=== PATIENT | male | born 1940 | race Caucasian/White ===

== ENCOUNTER 2017-02-03 06:07 | Inpatient (IN) | payer BC ==
[2017-01-23 12:46] LABS: BASOPHILS 0.4 %; BASOPHILS ABSOLUTE 0.02 10/3/uL (0.0-0.16); EOSINOPHILS 5.7 %; EOSINOPHILS ABSOLUTE 0.26 10/3/uL (0.0-0.53); HEMATOCRIT 35.1 % (40.0-51.0); HEMOGLOBIN 11.9 g/dL (13.6-17.8); LYMPHOCYTES 28.7 %; LYMPHOCYTES ABSOLUTE 1.32 10/3/uL (0.67-4.30); MANUAL DIFF NO %; MEAN CORPUS HGB CONC 33.9 g/dL (32.0-36.0); MEAN CORPUSCULAR HEMOGLOB 31.7 pg (26.0-34.0); MEAN CORPUSCULAR VOLUME 93.6 fL (80-100); MEAN PLATELET VOLUME 12.3 fL (9.2-13.0); MONOCYTES 7.6 %; MONOCYTES ABSOLUTE 0.35 10/3/uL (0.21-1.20); NEUTROPHILS 57.6 %; NEUTROPHILS ABSOLUTE 2.65 10/3/uL (2.02-8.40); PLATELET COUNT 114 10/3/uL (150-400); RBC DISTRIBUTION WIDTH 14.5 % (12.0-16.0); RED CELL COUNT 3.75 10/6/uL (4.7-6.1); WHITE BLOOD CELLS 4.6 10/3/uL (4.5-10.5)
[2017-01-23 12:52] LABS: INTERNATIONAL NORMAL RATI 1.1 UNITS (-); PROTIME (NOT ORD) 14.3 SEC (12.0-14.5)
[2017-01-23 12:57] LABS: ASCORBIC ACID (UR NOT ORDER) NEG (NEG); BILIRUBIN, URINE NEGATIVE (NEG); KETONE, URINE NEGATIVE (NEG); LEUKOCYTE ESTERASE(NOT OR NEG (NEG); WBC (NOT ORDERED) (RFLEX) 0 (0-5)
[2017-01-23 13:01] LABS: A/G RATIO 1.5 (0.7-1.9); ALBUMIN 3.7 G/DL (3.5-5.0); ALKALINE PHOSPHATASE 119 U/L (45-117); BUN (BLOOD UREA NITROGEN) 19 MG/DL (6-23); CALCIUM, SERUM 8.8 MG/DL (8.5-10.4); CHLORIDE, SERUM 106 MMOL/L (96-112); CO2 (CARBON DIOXIDE) 32 MMOL/L (24-34); CREATININE 0.82 MG/DL (0.70-1.30); GFR AFRICAN AMERICAN 100 ML/MIN (>=60); GFR NON AFRICAN AMERICAN 87 ML/MIN (>=60); GLOBULIN 2.5 G/DL (2.5-4.1); GLUCOSE, SERUM 98 MG/DL (60-99); POTASSIUM, SERUM 4.5 MMOL/L (3.5-5.3); SGOT(AST) 15 U/L (5-40); SGPT(ALT) 14 U/L (5-65); SODIUM, SERUM 144 MMOL/L (135-148); TOTAL BILIRUBIN 0.2 MG/DL (0-1.2); TOTAL PROTEIN 6.2 G/DL (6.0-8.5)
[2017-01-23 13:07] LABS: B NATRIURETIC PEPTIDE (BNP) 225.5 PG/ML (< 100.0)
[2017-01-23 21:53] LABS: GLYCOHEMOGLOBIN (HbA1c) 5.4 % (4.7-6.1)
--- NOTE | ~2017-02-03 | OP ---
Record Of Operation [facility] [address] [facility] [place]. [address] NAME: JAMES FERNANDEZ : 42 STATUS : ADM IN [facility]#: [id number] AGE: 76 ADM/REG DATE : 02/03/17 MR#: [id number] REPORT SERV DATE: 02/04/17 DICTATED BY: GREG SORIA DATE: 02/03/17 REPORT STATUS : Draft TRANSCRIBED BY: MODL DATE: 02/03/17 DATE OF PROCEDURE: 02/03/2017 ATTENDING PHYSICIAN: Greg Soria MD SURGEONS: 1. Greg Soria MD. 2. James Sanders M.D. 3. Bar Noble M.D. 4. Justino Santamaria M.D. GRAINER MACHINE: Jayesh Roa M.D., Ph.D, F.A.C.C. PREOPERATIVE DIAGNOSES: 1. Severe aortic stenosis. 2. Moderate coronary artery disease. 3. Hypertension. 4. Prior deep venous thrombosis. 5. Hyperlipidemia. 6. Depression. 7. History of prostate cancer. 8. Acute on chronic diastolic heart failure. POSTOPERATIVE DIAGNOSES: 1. Severe aortic stenosis. 2. Moderate coronary artery disease. 3. Hypertension. 4. Prior deep venous thrombosis. 5. Hyperlipidemia. 6. Depression. 7. History of prostate cancer. 8. Acute on chronic diastolic heart failure. OPERATION PROCEDURE PERFORMED: 1. TAVR right transfemoral with 26 mm Serrano Renate 3 valve. 2. ProGlide closure of the right femoral artery x2. 3. ProGlide closure of the left femoral artery x1. 4. Right transfemoral venous temporary pacer placement. 5. Ascending aortography. 6. Right iliofemoral runoff aortography. 7. Transthoracic echo. ESTIMATED BLOOD LOSS: Minimal. COMPLICATIONS: Zero. Record Of Operation [facility] [address] [facility] [place]. [address] NAME: JAMES FERNANDEZ : 42 STATUS : ADM IN PAT#: [id number] AGE: 76 ADM/REG DATE : 02/03/17 MR#: [id number] REPORT SERV DATE: 02/04/17 DICTATED BY: GREG SORIA DATE: 02/03/17 REPORT STATUS : Draft TRANSCRIBED BY: MODL DATE: 05/22/17 TUBES AND DRAINS: None. POSTOPERATIVE CONDITION: Stable to CVICU. INDICATIONS FOR PROCEDURE: The patient is a 76-year-old gentleman, with a prior history of hip replacement, with poor mobility after his hip replacement. He developed an acute DVT and had a Sandy filter placed for this and was sent to us after being admitted with pneumonia, and being found to have significant aortic stenosis after mild troponin bump. He had moderate coronary artery disease which do not feel was needed bypass to address it. His valve area pre deployment was approximately 0.6 cm2 with a mean gradient of 77. He was seen by myself and Dr. Sanders and felt to be an elevated risk for open aortic valve replacement, secondary to his limited mobility. It was felt that he was more appropriate for a TAVR. Risks, benefits, and alternatives were discussed with the patient including but not limited to, bleeding, infection, stroke, , heart attack, need for future operations. All questions were answered. FINDINGS AT THE TIME OF OPERATION: 1. Total time of rapid ventricular pacing was 52 seconds. 2. Actual time of TAVR deployment was 12:21 p.m. 3. Cardiac output pre deployment was 5.7, post deployment was 8, valve area post deployment was 3.75, valve area pre deployment was 0.67, these were cm squared, pre implant aortic systolic-diastolic pressures, pre systolic 130, diastolic of 54, mean of 81, heart rate of 73; post systolic 108, diastolic of 50, mean 68, heart rate of 82; pre implant AV gradient, mean 58, peak of 66; post implant AV gradient, mean of 6, peak of 3. TOTAL CONTRAST VOLUME USED: 160 mL. FLUORO TIME: 14.4 minutes. ESTIMATED BLOOD LOSS: Less than 50 mL. TOTAL MGY USED: 1791. AI INDEX: 1. TTE post showed a well-seated valve without significant aortic insufficiency or perivalvular leak. DETAILS OF PROCEDURE: The patient brought to the operating room, and placed supine on the operating room table. After monitored anesthesia, he was prepped and draped in the usual sterile fashion, his abdomen, groin, and legs. Using micropuncture technique, the right femoral artery, left femoral artery, and left femoral vein were all accessed. For the arterial sticks contrast angiography was performed that confirmed placement of the catheters. Each of these micropuncture catheters were exchanged for 6-[place]izen [place] introducer sheath. The left transfemoral temporary venous pacemaker was placed and floated into the Record Of Operation [facility] [address] [place]. [address] NAME: JAMES FERNANDEZ : 42 STATUS : ADM IN PAT#: [id number] AGE: 76 ADM/REG DATE : 02/03/17 MR#: [id number] REPORT SERV DATE: 02/04/17 DICTATED BY: GREG SORIA DATE: 02/03/17 REPORT STATUS : Draft TRANSCRIBED BY: PHAM DATE: 02/03/17 right ventricle under fluoroscopic guidance. This was done without interference of the [place] filter. Confirmatory placement by pacing thresholds was confirmed. A pigtail catheter and a guidewire were then advanced into the ascending aorta into the right non coronary sinus to confirm deployment angles using contrast aortography. The J-wire was then placed in the right femoral artery and the 6-[place]izen [place] sheath was removed. Two ProGlide closure devices were then placed in the right femoral artery. A straight wire was then advanced into the ascending artery under fluoroscopic guidance. The pigtail catheter was advanced over the guidewire. The Lunderquist was then advanced through the pigtail into the ascending aorta. The TAVR sheath was then advanced into the descending thoracic aorta. The patient was anticoagulated with 10,000 units of heparin. An AL1 catheter was advanced over the Lunderquist wire which was removed. A straight soft wire was then used to cross the valve and the AL1 catheter was advanced across the valve and exchanged for a pigtail catheter. Simultaneous pressures in the ventricle and ascending aorta were then measured. The extra stiff wire was then placed through the pigtail in the left ventricle. The pigtail was removed. The valve delivery system were brought up, orientation of the valve was confirmed and the valve delivery system was advanced into the descending thoracic aorta. The balloon was then backed onto the valve delivery system and then the valve delivery system was advanced with the valve across the aortic arch into the ascending aorta and across the valve. Positioning was confirmed with fluoro. Angle for deployment of the valve were then placed. The pressure similarly was backed up into the ascending aorta. The valve was then deployed. Temporary rapid ventricular pacing was performed. Contrast aortography confirmed positioning of the valve and the valve was deployed using balloon. Once the valve was deployed, the balloon was deflated and the delivery system backed in the descending thoracic aorta. Contrast aortography was performed through the pigtail demonstrating no significant aortic insufficiency. Transthoracic echocardiography was then performed by Dr. oRa and demonstrated confirmed absence of significant AI. The valve delivery system was then pulled out of the sheath. A pigtail was then passed up the extra stiff wire and placed into the left ventricle across the valve. The wire was removed and simultaneous pressure recordings made of the ventricle and aorta measuring the gradient, then a pullback gradient was performed, the sheath was then removed from the right femoral artery and the ProGlide closure devices were fully deployed and secured. After this pressure was held for 15 minutes. Protamine was administered for a total of 25 mg, as there was a small amount of bleeding coming from the right transfemoral sheath side. After holding for 15 minutes, the pigtail catheter in the left femoral artery was brought down to the aortic bifurcation and contrast aortography was performed with digital subtraction angiography ,demonstrating good patency of the right femoral artery, with no significant stenosis, no externalization. The pigtail was removed over a guidewire and a ProGlide closure was performed of the left femoral artery. A temporary pacemaker through the femoral vein was removed. [place] catheter was removed. The patient tolerated the procedure well. There were no complications. Sponge and needle counts were correct. The patient was taken to CVICU in stable condition with palpable femoral pulses. [facility]/PHAM Greg Costa Record Of Operation [address] [address] NAME: JAMES FERNANDEZ : 42 STATUS : ADM IN PAT#: [id number] AGE: 76 ADM/REG DATE : 02/03/17 MR#: [id number] REPORT SERV DATE: 02/04/17 DICTATED BY: GREG SORIA DATE: 02/03/17 REPORT STATUS : Draft TRANSCRIBED BY: MODL DATE: 02/03/17 MD Dina / [id number] CC: James Sanders M.D.
--- NOTE | ~2017-02-03 | OP ---
Record Of Operation [facility] [address] [place]. [address] NAME: JAMES FERNANDEZ : 42 STATUS : ADM IN PAT#: [id number] AGE: 76 ADM/REG DATE : 02/03/17 MR#: [id number] REPORT SERV DATE: 02/04/17 DICTATED BY: HANNA NOBLE DATE: 02/03/17 REPORT STATUS : Draft TRANSCRIBED BY: PHAM DATE: 02/03/17 DATE OF PROCEDURE: PROCEDURE: Right transfemoral transcatheter aortic valve implantation, replacement using 26 mm Serrano S3 valve. INDICATIONS FOR THE PROCEDURE: Mr. James Fernandez is a 76-year-old gentleman with severe aortic stenosis. He has a history of zga-DY-ipanwcc elevation myocardial infarction in 09/2016. He has acute on chronic diastolic heart failure. He had a deep venous thrombosis with embolism. He has a chronic IVC filter in place. He had a recent, 09/2016, iliac vein thrombosis. He was on Eliquis for that. He has also had hypertension, hyperlipidemia, history of prostate cancer, right hip replacement, osteoarthritis, prior tobacco use, depression, lumbosacral spondylosis with radicular pain. He was seen by both Dr. Sanders and Dr. Arroyo and felt to be a poor candidate for surgical aortic valve replacement, and entire [facility] valve team felt he would be better candidate for transcatheter aortic valve replacement. His predicted mortality by STS score is 1.6%, predicted morbidity/mortality 13% with an EuroSCORE mortality of 2.1%. He is felt to be a poor rehab candidate. He continues to use a walker, cannot ambulate on his own. His strength was very poor, and again he failed the walk test. He presented with class II heart failure symptoms. POSTOPERATIVE DIAGNOSIS: Successful right transfemoral transcatheter aortic valve replacement using Serrano 26 mm S3 valve. OPERATORS: Dr. Noble, Dr. Arroyo, Dr. Sanders, and Dr. Santamaria. OPERATIVE TECHNIQUE: The patient was prepped and draped in the usual sterile fashion. He received propofol anesthesia. He was not intubated. He did have a radial A-line and a right heart catheter. He received MAC, propofol anesthesia. The right and left groins were anesthetized with lidocaine 1%, 8 mL. Access was easily was obtained using a micropuncture technique. Angiogram confirmed access in the common femoral artery. Access to the left femoral vein was also obtained with a micropuncture technique. 6-[place] sheaths were placed into both the left and right femoral arteries and the left femoral vein. A pacemaker was placed via the left femoral vein to the right ventricular apex with excellent threshold. The pigtail catheter was placed in the left femoral artery to allow valve positioning. Two ProGlide sutures were placed in the right femoral artery at the 10 o'clock and 2 o'clock position in the pre-close technique. A power injection with rapid ventricular pacing allowed us to visualize the aortic annulus. Record Of Operation [facility] [address] [place]. [address] NAME: JAMES FERNANDEZ : 42 STATUS : ADM IN PAT#: [id number] AGE: 76 ADM/REG DATE : 02/03/17 MR#: [id number] REPORT SERV DATE: 02/04/17 DICTATED BY: HANNA NOBLE DATE: 02/03/17 REPORT STATUS : Draft TRANSCRIBED BY: PHAM DATE: 02/03/17 Heparin was given IV, the activating clotting time was therapeutic. A J-wire was placed from the right femoral artery into the ascending aorta, a multipurpose catheter was used, the J-wire was exchanged for the Lunderquist double-curved wire. We then placed the Serrano sheath without difficulty. With the Lunderquist wire in position, an AL1 catheter was placed into the ascending aorta, that wire was removed, and a straight wire was used to cross the aortic valve without difficulty. Once we crossed the aortic valve, the AL1 was advanced into the left ventricle, an exchange length J-wire was placed in the left ventricle. A pigtail was placed in the left ventricle. We then obtained simultaneous pressures between the left ventricle and the ascending aorta. At this time, we placed the preformed Amplatz extra-stiff wire into the left ventricle. We then performed balloon aortic valvuloplasty using the Serrano supply balloon, 4 cm x 23 mm diameter. With rapid ventricular pacing, the balloon was expanded, the balloon aortic valvoplasty was completed. That balloon was removed. We then positioned the Serrano 26 mm S3 valve. Again, with rapid ventricular pacing, the valve was deployed. Post-deployment, the thoracic aortogram demonstrated no aortic insufficiency. The chest wall echo demonstrated no aortic insufficiency. The delivery balloon was removed. A wire was left in place, the ProGlide sutures were tightened, there was no bleeding. Once removal of the wire, there was bleeding at the access site on the right femoral artery. Manual pressure was maintained. At the completion, the aortogram did not demonstrate any extravasation. It did not demonstrate any stenosis. Manual pressure was held, and protamine 25 mg was delivered. A FemoStop was then placed. There was no bleeding with manual pressure or placement of the FemoStop. The right heart catheter was removed. The pacer was removed. The total rapid pacing time was 52 seconds. The actual time of the valve deployment was 12:21 p.m. The cardiac output pre-deployment was 5.7 L/minute, post-deployment 8.0 L/minute. The valve area pre-deployment was 0.7 cm2, post-deployment 3.8 cm2. The blood pressure pre-deployment was 130/54, mean of 81, heart rate of 73. Post-deployment blood pressure was 108/50, mean 68, heart rate 82. The gradient pre-deployment was 58 mmHg mean, 66 mmHg peak to peak; post-deployment, the valve gradient was 6 mmHg mean and peak to peak 3. Total fluoro time was 14.4 minutes. The total volume of contrast was 160 mL. Estimated blood loss was 50 mL. The radiation dose was 1791 mGy. The AI index is 31. There was no aortic insufficiency by chest wall echo or by thoracic aortogram. In short, the patient underwent a right transfemoral transcatheter aortic valve replacement Record Of [address] [address] NAME: JAMES FERNANDEZ : 42 STATUS : ADM IN PAT#: [id number] AGE: 76 ADM/REG DATE : 02/03/17 MR#: [id number] REPORT SERV DATE: 02/04/17 DICTATED BY: HANNA NOBLE DATE: 02/03/17 REPORT STATUS : Draft TRANSCRIBED BY: HPAM DATE: 02/03/17 using a 26 mm Serrano S3 valve. There is no AI by echo or thoracic aortogram. The gradient decreased from 66 to 3, the valve area increased from 0.7 to 3.8 cm2. The patient will be treated with aspirin, clopidogrel and Eliquis will be restarted because of the DVT. [facility] Hanna Noble M.D. / [id number] CC: Taryn Pichardo MD
[~2017-02-03 06:07] MED LIST: DITRO5 PO; ELIQUIS 5 MG TAB5 MG PO; FLOMAX4 PO; LOP25 PO; METHOC500B PO; NEUR300 PO; NOR10 PO; PRAVACHOL40 MG PO; PRIM250 PO; PROTONIX PO
[2017-02-03 14:04] LABS: BASOPHILS 0.3 %; BASOPHILS ABSOLUTE 0.01 10/3/uL (0.0-0.16); EOSINOPHILS 4.9 %; EOSINOPHILS ABSOLUTE 0.18 10/3/uL (0.0-0.53); HEMATOCRIT 31.6 % (40.0-51.0); HEMOGLOBIN 10.8 g/dL (13.6-17.8); IMMATURE GRANULOCYTES 0.5 %; IMMATURE GRANULOCYTES ABSOLUTE 0.02 10/3/uL (0.0-0.11); LYMPHOCYTES 25.1 %; LYMPHOCYTES ABSOLUTE 0.93 10/3/uL (0.67-4.30); MANUAL DIFF NO %; MEAN CORPUS HGB CONC 34.2 g/dL (32.0-36.0); MEAN CORPUSCULAR HEMOGLOB 32.1 pg (26.0-34.0); MEAN PLATELET VOLUME 12.1 fL (9.2-13.0); MONOCYTES 4.6 %; MONOCYTES ABSOLUTE 0.17 10/3/uL (0.21-1.20); NEUTROPHILS 64.6 %; PLATELET COUNT 104 10/3/uL (150-400); RED CELL COUNT 3.36 10/6/uL (4.7-6.1); WHITE BLOOD CELLS 3.7 10/3/uL (4.5-10.5)
[2017-02-03 14:10] LABS: INTERNATIONAL NORMAL RATI 1.2 UNITS (-); PROTIME (NOT ORD) 15.5 SEC (12.0-14.5)
[2017-02-03 14:21] LABS: PARTIAL THROMBO TIME > 150.0 SEC (22.5-37.2)
[2017-02-03 14:26] LABS: BUN (BLOOD UREA NITROGEN) 17 MG/DL (6-23); CALCIUM, SERUM 8.1 MG/DL (8.5-10.4); CHLORIDE, SERUM 109 MMOL/L (96-112); CO2 (CARBON DIOXIDE) 32 MMOL/L (24-34); CREATININE 0.78 MG/DL (0.70-1.30); GFR AFRICAN AMERICAN 102 ML/MIN (>=60); GFR NON AFRICAN AMERICAN 88 ML/MIN (>=60); GLUCOSE, SERUM 120 MG/DL (60-99); POTASSIUM, SERUM 4.3 MMOL/L (3.5-5.3); SODIUM, SERUM 144 MMOL/L (135-148)
[2017-02-03 19:38] LABS: HEMATOCRIT 31.6 % (40.0-51.0); HEMOGLOBIN 10.9 g/dL (13.6-17.8)
[2017-02-04 03:41] LABS: BASOPHILS 0.2 %; BASOPHILS ABSOLUTE 0.01 10/3/uL (0.0-0.16); EOSINOPHILS 1.7 %; HEMATOCRIT 29.1 % (40.0-51.0); HEMOGLOBIN 9.9 g/dL (13.6-17.8); IMMATURE GRANULOCYTES 0.2 %; IMMATURE GRANULOCYTES ABSOLUTE 0.01 10/3/uL (0.0-0.11); LYMPHOCYTES 12.6 %; LYMPHOCYTES ABSOLUTE 0.73 10/3/uL (0.67-4.30); MANUAL DIFF NO %; MEAN CORPUSCULAR HEMOGLOB 32.2 pg (26.0-34.0); MEAN CORPUSCULAR VOLUME 94.8 fL (80-100); MEAN PLATELET VOLUME 11.7 fL (9.2-13.0); MONOCYTES 9.6 %; MONOCYTES ABSOLUTE 0.56 10/3/uL (0.21-1.20); NEUTROPHILS 75.7 %; PLATELET COUNT 95 10/3/uL (150-400); RBC DISTRIBUTION WIDTH 14.6 % (12.0-16.0); RED CELL COUNT 3.07 10/6/uL (4.7-6.1); WHITE BLOOD CELLS 5.8 10/3/uL (4.5-10.5)
[2017-02-04 03:54] LABS: BUN (BLOOD UREA NITROGEN) 18 MG/DL (6-23); CHLORIDE, SERUM 108 MMOL/L (96-112); CO2 (CARBON DIOXIDE) 29 MMOL/L (24-34); CREATININE 0.71 MG/DL (0.70-1.30); GFR AFRICAN AMERICAN 106 ML/MIN (>=60); GFR NON AFRICAN AMERICAN 92 ML/MIN (>=60); POTASSIUM, SERUM 3.8 MMOL/L (3.5-5.3); SODIUM, SERUM 144 MMOL/L (135-148)
[2017-02-04 03:55] LABS: GLUCOSE, SERUM 85 MG/DL (60-99)
[2017-02-04] MEDS ORDERED: ELIQUIS 5 MG TAB5 MG PO (10:45)
[2017-02-04] MEDS ORDERED: ASAB PO (10:55)
[2017-02-04] MEDS ORDERED: PLAVIX PO (10:56)
== END 2017-02-04 14:48 | disposition home or self-care (01) | DRG 266 ==
LOC: SDC/OF 06:07 → CVICU 12:40
PROVIDERS: Internal Medicine Cardiovascular Disease; Thoracic Surgery (Cardiothoracic Vascular Surgery)
PROC: 02RF38Z Replacement of Aortic Valve with Zooplastic Tissue, Percutaneous Approach (ICD-10-PCS; principal; 2017-02-03 11:00)
PROC: B24BZZ4 Ultrasonography of Heart with Aorta, Transesophageal (ICD-10-PCS; 2017-02-03 11:00)
DX: I35.0 Nonrheumatic aortic (valve) stenosis (principal); I50.33 Acute on chronic diastolic (congestive) heart failure; I82.409 Acute embolism and thrombosis of unspecified deep veins of unspecified lower extremity; I11.0 Hypertensive heart disease with heart failure; I25.10 Atherosclerotic heart disease of native coronary artery without angina pectoris; M19.90 Unspecified osteoarthritis, unspecified site; G47.33 Obstructive sleep apnea (adult) (pediatric); K21.9 Gastro-esophageal reflux disease without esophagitis; G25.0 Essential tremor; E78.2 Mixed hyperlipidemia; F32.9 Major depressive disorder, single episode, unspecified; Z95.828 Presence of other vascular implants and grafts; Z87.891 Personal history of nicotine dependence; Z85.46 Personal history of malignant neoplasm of prostate; Z79.01 Long term (current) use of anticoagulants; Z79.82 Long term (current) use of aspirin; Z79.899 Other long term (current) drug therapy
CPT/HCPCS: 36415; 36600; 71010; 71020; 80048; 80053; 81001; 82330; 82803; 82947; 82962; 83036; 83735; 83880; 84132; 84295; 85014; 85018; 85025; 85347; 85610; 85730; 86850; 86900; 86901; 87641; 93005; 93306; 93312; 93320; 93325; A9270-GY; C1769; J0690; J2250; J2370; J2720; J3010; J3475